=== PATIENT | female | born 1985 | race Caucasian/White ===

== ENCOUNTER → 2020-09-29 09:49 | Outpatient (CLI) | payer OTHER, SELFPAY ==
--- NOTE | ~2020-09-29 | XR_ITS ---
EXAMINATION: XR chest 2V DATE: 09/29/2020 10:09 INDICATION: Chronic cough. TECHNIQUE: Frontal and lateral views of the chest were obtained. COMPARISON: Chest 2 views 06/13/2019 FINDINGS: The chest demonstrates clear lungs without pneumonia, pleural effusion, or pneumothorax. Th e heart size is normal. IMPRESSION: 1. No acute cardiopulmonary disease. Reviewed, dictated and finalized at location A. [employer]
== END ==
PROVIDERS: PCP Family Medicine; Visit Provider Family Medicine
DX: R05 Cough (principal)
CPT/HCPCS: 71046

== ENCOUNTER 2025-05-12 11:53 | Outpatient (CLI) | payer OTHER, SELFPAY ==
--- NOTE | ~2025-05-12 | XR_ITS ---
PA, oblique, and lateral views of the right fourth finger CLINICAL HISTORY: Pain FINDINGS: No fracture or dislocation seen. Joint spaces are intact. Soft tissues are unremarkable. IMPRESSION: No significant abnormality seen. Reviewed, dictated and finalized at location M.
== END 2025-05-12 11:54 | disposition home or self-care (01) ==
LOC: MICIMG 11:55
PROVIDERS: PCP Family Medicine; Visit Provider Family Medicine
DX: M79.644 Pain in right finger(s) (principal)
CPT/HCPCS: 73140